=== PATIENT | male | born 1945 | race African-American/Black ===

== ENCOUNTER 2017-01-12 01:50 | Emergency (ER) | payer MEDICARE, MEDICAID ==
[~2017-01-12] VITALS: Ht 170.2 cm; Wt 69.0 kg
[2017-01-12 04:00] VITALS: BP 135/91
== END 2017-01-12 06:06 | disposition home or self-care (01) ==
LOC: ER 02:04
DX: S32.301A Unspecified fracture of right ilium, initial encounter for closed fracture (principal); I13.0 Hypertensive heart and chronic kidney disease with heart failure and stage 1 through stage 4 chronic kidney disease, or unspecified chronic kidney disease; N18.9 Chronic kidney disease, unspecified; I50.9 Heart failure, unspecified; E11.9 Type 2 diabetes mellitus without complications; Z86.73 Personal history of transient ischemic attack (TIA), and cerebral infarction without residual deficits; X58.XXXA Exposure to other specified factors, initial encounter; Y93.89 Activity, other specified; Y92.89 Other specified places as the place of occurrence of the external cause; Y99.8 Other external cause status
CPT/HCPCS: 72170; 99283